=== PATIENT | male | born 1985 | race Caucasian/White ===

== ENCOUNTER 2019-03-06 00:41 | Emergency (ER) | payer OTHER, MEDICAID, SELFPAY ==
[2019-03-06 00:45] VITALS: BP 149/82; PULSE 102; RESP 21; TEMP 36.8; O2SAT 95; BMI 26.9
--- NOTE | 2019-03-06 00:54 | ED_ITS ---
HPI - General Adult General Chief complaint: Trauma Stated complaint: 120 volts shock numbness/tingling whole body Time Seen by Provider: 03/06/19 00:48 Source: patient Mode of arrival: ambulatory Limitations: no limitations History of Present Illness HPI narrative: 33-year-old male here for evaluation of an electric shock that he received approximately 6 hours ago. 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 He states that he felt it exit of his left hand. No loss conscious. Since then he has developed pain in both of his arms, the left side of his head, left side of his chest, radiating down left side of his abdomen and into his left hip. He stated that he continued to work because he had other jobs that needed to be completed. He missed the initial [facility] transport here at [facility] and had to wait for the evening [facility]. Related Data Allergies Allergy/AdvReac Type Severity Reaction Status Date / Time Penicillins [PENICILLINS] Allergy Mild Unverified 11/15/17 12:31 Review of Systems Constitutional Denies fever(s), Reports headache(s) and Denies weakness ENT Ears, Nose, Mouth, and Throat: Reports headache(s) and Denies disequilibrium Cardiovascular Reports chest pain and Denies dyspnea Respiratory Denies cough and Denies dyspnea Gastrointestinal Gastrointestinal: Denies abdominal pain, Denies nausea and Denies vomiting Genitourinary Denies dysuria Musculoskeletal Reports myalgias (Left and right arm), Denies arthralgias and Reports tingling Integumentary/Breasts Denies lesions and Denies rash Comments: No skin coleman Neurologic Reports headache(s), Reports tingling, Denies disequilibrium and Denies weakness Hematologic/Lymphatic Denies easy bleeding and Denies easy bruising [facility] Medical History Healthy adult (Acute) Social History Smoking Status: Current every day smoker Social History Smoking Status: Current every day smoker Exam Initial Vital Signs Initial Vital Signs: Vital Signs Temperature 98.3 F 03/06/19 00:45 Pulse Rate 102 H 03/06/19 00:45 Respiratory Rate 21 03/06/19 00:45 Blood Pressure 149/82 H 03/06/19 00:45 Pulse Oximetry 95 03/06/19 00:45 Const General: cooperative, well developed, well groomed and No acute distress Orientation: alert, awake and oriented x3 HENMT Head: normal to inspection and normocephalic Resp Effort & Inspection: normal respiratory effort Auscultation: clear to auscultation bilaterally Cardio Rate: regular rate Rhythm: regular rhythm Pulses: radial pulses present GI Inspection: non-distended Palpation: soft Skin Lesions: no lesions Rashes: no rashes Wounds: no wounds Neuro General: alert, awake and oriented x3 Cognition: normal cognition Speech: speech normal Gait: normal gait Motor: muscle tone normal throughout Extrem General: normal to inspection and capillary refill normal Psych Appearance: grossly normal and well kempt Course Orders Ordered: ED Orders 03/06/19 00:48 EKG-12 Lead Stat 03/06/19 01:05 Basic Metabolic Panel Stat Complete Blood Count AUTO DIFF Stat Creatine Kinase Stat Troponin I Stat Vital Signs - 8 hr 03/06/19 00:45 03/06/19 01:30 Temperature 98.3 F Pulse Rate 102 H 94 H Respiratory Rate 21 20 Blood Pressure 149/82 H Blood Pressure [Left Arm] 105/70 Pulse Oximetry 95 100 Medical Decision Making Lab Data Lab results reviewed: Yes I reviewed the patient's lab results. Result diagrams: 03/06/19 01:05 03/06/19 01:05 Lab Results 03/06/19 03/06/19 Range/Units 01:05 01:05 WBC 6.5 (4.5-11.0) X10^3/uL RBC 5.03 (4.5-5.9) X10^6/uL Hgb 15.4 (13.5-17.5) g/dL Hct 44.5 (41-53) % MCV 88.5 (80-100) fL MCH 30.6 (26-34) PG MCHC 34.6 (30-36) % RDW 13.1 (11.6-14.8) % Plt Count 260 (150-400) X10^3/uL Neut % (Auto) 49.6 L (50-75) % Lymph % (Auto) 37.1 (25-40) % [place] % (Auto) 11.1 (3-14) % Eos % (Auto) 1.6 L (2-4) % Baso % (Auto) 0.6 (0-2) % Neut # (Auto) 3200 (6698-7609) /uL Lymph # (Auto) 2400 (9536-7816) /uL [place] # (Auto) 700 (0-900) /uL Eos # (Auto) 100 (0-450) /uL Baso # (Auto) 0 (0-100) /uL Sodium 141 (137-145) mmol/L Potassium 4.3 (3.4-5.1) mmol/L Chloride 103 (98-107) mmol/L Carbon Dioxide 26 (22-32) mmol/L BUN 11 (9-20) mg/dL Creatinine 0.80 (0.66-1.25) mg/dL Estimated GFR > 60.0 (>60) mL/min BUN/Creatinine Ratio 13.8 (6-22) Glucose 121 H (70-100) mg/dL Calcium 9.9 (8.4-10.2) mg/dL Total Creatine Kinase 539 H (55-170) U/L Troponin I < 0.012 (0.01-0.034) ng/mL ECG Data Attestation: I personally reviewed and interpreted this ECG as follows: Prior ECG tracings: not available for review Interpretation: Sinus rhythm Ventricular rate of 99 Normal axis Normal QRS Normal QTC No ST T wave changes MDM Narrative Medical decision making narrative: Patient without any external signs of damage. No skin coleman. His EKG is unremarkable. No ectopy on the monitor. Event occurred 6 hours ago. Does have slightly elevated CK however do have low concern for rhabdo. Rest of his lab work was unremarkable. Hold on further workup for now. No indication for admission to the hospital. Discussed all of his lab results with the patient. We discussed return precautions and follow-up instructions. He expressed understanding and agreement plan. Discharge Plan Departure Patient Disposition: Home Clinical Impression: Electric shock Qualifiers: Encounter type: initial encounter Qualified Code(s): T75.4XXA - Electrocution, initial encounter Instructions: Electrical Coleman and Injuries Activity Restrictions/Additional Instructions: Be sure to increase your fluid intake. Contact your primary provider for follow-up. Return to the emergency department for any new or worsening symptoms Referrals: Kulwant Abreu MD [Primary Care Provider] -
[2019-03-06 01:16] LABS: Add Manual Diff / Slide Review NO; Basophils Absolute Auto 0 /uL (0-100); Basophils Percent Auto 0.6 % (0-2); Eosinophils Absolute Auto 100 /uL (0-450); Eosinophils Percent Auto 1.6 % (2-4); Hematocrit 44.5 % (41-53); Hemoglobin 15.4 g/dL (13.5-17.5); Lymphocytes Absolute Auto 2400 /uL (1100-4500); Lymphocytes Percent Auto 37.1 % (25-40); Mean Corpuscular HGB Conc 34.6 % (30-36); Mean Corpuscular Hemoglobin 30.6 PG (26-34); Mean Corpuscular Volume 88.5 fL (80-100); Monocytes Absolute Auto 700 /uL (0-900); Monocytes Percent Auto 11.1 % (3-14); Neutrophils Absolute Auto 3200 /uL (1500-7000); Neutrophils Percent Auto 49.6 % (50-75); Platelet Count 260 X10^3/uL (150-400); Red Blood Cell Count 5.03 X10^6/uL (4.5-5.9); Red Cell Distribution Width 13.1 % (11.6-14.8); White Blood Cell Count 6.5 X10^3/uL (4.5-11.0)
[2019-03-06 01:24] LABS: BUN Creatinine Ratio 13.8 (6-22); Blood Urea Nitrogen 11 mg/dL (9-20); Calcium 9.9 mg/dL (8.4-10.2); Carbon Dioxide 26 mmol/L (22-32); Chloride 103 mmol/L (98-107); Creatine Kinase 539 U/L (55-170); Estimated Glomerular Filt Rate > 60.0 mL/min (>60); Glucose 121 mg/dL (70-100); HEMOLYSIS < 15 (0-50); Potassium 4.3 mmol/L (3.4-5.1); Sodium 141 mmol/L (137-145)
[2019-03-06 01:30] VITALS: BP 105/70; PULSE 94; RESP 20; O2SAT 100
[2019-03-06 01:38] LABS: Troponin I < 0.012 ng/mL (0.01-0.034)
[2019-03-06 01:55] VITALS: BP 105/70; PULSE 92; RESP 16; TEMP 36.7; O2SAT 98
== END 2019-03-06 01:55 | disposition home or self-care (01) ==
PROVIDERS: Emergency Provider Emergency Medicine; PCP Family Medicine
DX: T75.4XXA Electrocution, initial encounter (principal); Y99.0 Civilian activity done for income or pay
CPT/HCPCS: 36591; 80048; 82550; 84484; 85025; 93005; 99282; 99284